=== PATIENT | female | born 1955 | race Caucasian/White ===

== ENCOUNTER 2022-01-02 12:01 | Emergency (ER) | payer OTHER ==
[~2022-01-02] VITALS: Ht 147.3 cm; Wt 57.6 kg
[2022-01-02 12:05] VITALS: BP_SYST 143
--- NOTE | 2022-01-02 12:05 | NUR ---
Placed in room 2 . Placed on school lunch monitor, blood pressure machine and pulse oximeter. To gown for exam. Side rails up. Report given to ARTURO TAN.
--- NOTE | 2022-01-02 12:15 | NUR ---
Pt arrives from home brought in by self. Pt c/o left side mouth pain. Pt states PS 8.5 of 10. slight swelling of left jaw line. recent procedure: Pt states Dental care of implant procedure occurred on 12/21 with golfball size swelling. PMH Bi-Polar, HTN, Gerd , hernia
--- NOTE | 2022-01-02 12:22 | NUR ---
ER at bedside examining patient.
[2022-01-02] MEDS ORDERED: LIDOCAINE/EPI 2% 1:100000 20 ML VIAL INJ ONE (13:00)
[2022-01-02] MEDS ORDERED: BUPIVACAINE /PF 0.25% 30 ML VIAL INJ ONE (13:00)
--- NOTE | 2022-01-02 13:16 | NUR ---
Patient transported to radiology via , accompanied by tech.
[2022-01-02] MEDS ORDERED: HYDR-3921 PO (14:13)
[2022-01-02 15:01] VITALS: BP_SYST 134
--- NOTE | 2022-01-02 15:05 | NUR ---
Patient given written and verbal discharge instructions and verbalizes understanding. ER MD discussed with patient the results and treatment provided. Patient in stable condition. ID arm band removed. Opportunity for questions provided and answered. Medication side effect fact sheet provided.
== END 2022-01-02 14:55 | disposition home or self-care (01) ==
LOC: SED 12:01
DX: K08.89 Other specified disorders of teeth and supporting structures (principal)
CPT/HCPCS: 64400; 70486; 76376; 99284; J3490

== ENCOUNTER 2022-03-07 11:50 | Emergency (ER) | payer OTHER ==
[~2022-03-07] VITALS: Ht 147.3 cm; Wt 54.9 kg
[~2022-03-07 11:50] MED LIST: HYDR-3921 PO
--- NOTE | 2022-03-07 11:50 | NUR ---
Pt brought by self, A&Ox4, pt presents to ER with L lower toothache/ tongue pain for the last couple days, afebrile, skin pink and warm, cap refill <3.
[2022-03-07 11:55] VITALS: BP_SYST 136
--- NOTE | 2022-03-07 14:10 | NUR ---
Dr Gauthier evaluating patient in the triage room
[2022-03-07] MEDS ORDERED: AZIT500T3 PO (14:16)
[2022-03-07] MEDS ORDERED: HYDR-3917 PO (14:16)
--- NOTE | 2022-03-07 14:54 | NUR ---
Patient given written and verbal discharge instructions and verbalizes understanding. ER MD discussed with patient the results and treatment provided. Patient in stable condition. ID arm band removed. Rx of ZITHROMAX, NORCO given. Patient educated on pain management and to follow up with PMD. Pain Scale 0/10. Opportunity for questions provided and answered. Medication side effect fact sheet provided.
== END 2022-03-07 14:54 | disposition home or self-care (01) ==
LOC: SED 11:50
DX: K05.10 Chronic gingivitis, plaque induced (principal); K08.89 Other specified disorders of teeth and supporting structures; Z88.0 Allergy status to penicillin; Z88.6 Allergy status to analgesic agent; Z79.899 Other long term (current) drug therapy
CPT/HCPCS: 99283

== ENCOUNTER 2022-06-01 11:12 | Emergency (ER) | payer OTHER ==
[~2022-06-01] VITALS: Ht 147.3 cm; Wt 56.2 kg
[~2022-06-01 11:12] MED LIST changes: +AZIT500T3 PO; +HYDR-3917 PO
[2022-06-01 11:20] VITALS: BP_SYST 152
--- NOTE | 2022-06-01 12:14 | NUR ---
Patient to ER bed H1 to gown for evaluation. Side rails up. Report given to ARTURO SZYMANSKI.
[2022-06-01] MEDS ORDERED: HYDR-3917 PO (12:15)
[2022-06-01] MEDS ORDERED: IBUP-1969 PO (12:15)
--- NOTE | 2022-06-01 12:16 | NUR ---
PATIENT CAME IN C/O LOW BACK PAIN, INJURY. PATIENT COMPLAINS OF CHRONIC LOWER BACK AND NECK PAIN, IN BETWEEN PAIN MANAGEMENT APPOINTMENTS. PT WOULD LIKE PAIN MEDICINE. HAS HX OF HYSTERECTOMY, HERNIA REPAIR, BLADDER PROLAPSE REPAIR, CHRONIC NECK AND BACK PAIN, BIPOLAR DISORDER. CARE TO BE PROVIDED ORDERED.
--- NOTE | 2022-06-01 12:21 | NUR ---
ER Dr. WRIGHT at bedside examining patient.
--- NOTE | 2022-06-01 14:10 | NUR ---
Patient given written and verbal discharge instructions and verbalizes understanding. ER DR. KYLE BARRIOS discussed with patient the results and treatment provided. Patient in stable condition. Rx of HYDROCODONE AND ACETAMINOPHEN given. Patient educated on pain management and to follow up with PMD. Pain Scale 2/10. Opportunity for questions provided and answered. Medication side effect fact sheet provided.
== END 2022-06-01 14:10 | disposition home or self-care (01) ==
LOC: SED 11:12
DX: M54.50 Low back pain, unspecified (principal); G89.29 Other chronic pain; Z88.1 Allergy status to other antibiotic agents; Z88.6 Allergy status to analgesic agent; Z79.899 Other long term (current) drug therapy
CPT/HCPCS: 99283

== ENCOUNTER 2022-06-23 16:44 | Emergency (ER) | payer OTHER ==
[~2022-06-23] VITALS: Ht 147.3 cm; Wt 56.2 kg
[~2022-06-23 16:44] MED LIST changes: +IBUP-1969 PO
[2022-06-23 17:20] VITALS: BP_SYST 146
--- NOTE | 2022-06-23 19:15 | NUR ---
MD WITH PT IN TRIAGE.
--- NOTE | 2022-06-23 20:00 | NUR ---
PT FROM HOME WITH LEFT SIDED MOUTH PAIN AFTER DENTAL PROCEDURE. PT RATES PAIN 10/10. A&O X3 AND AMBULATORY. MADE AWARE.
[2022-06-23] MEDS ORDERED: BENZ9GEL3 MM (21:11)
[2022-06-23] MEDS ORDERED: HYDR-3917 PO (21:12)
[2022-06-23] MEDS ORDERED: ACETAMINOPHEN 500 MG TABLET PO ONE (21:45)
--- NOTE | 2022-06-23 22:23 | NUR ---
CALLED PT TO MEDICATE. NO RESPONSE.
--- NOTE | 2022-06-23 22:30 | NUR ---
CALLED PT TO MEDICATE. NO RESPONSE.
--- NOTE | 2022-06-23 23:00 | NUR ---
PT LEFT WIHTOUT DISCHARGE INSTRUCTIONS.
== END 2022-06-23 23:00 | disposition home or self-care (01) ==
LOC: SED 16:44
DX: K12.0 Recurrent oral aphthae (principal); Z88.0 Allergy status to penicillin; Z88.6 Allergy status to analgesic agent; Z79.899 Other long term (current) drug therapy
CPT/HCPCS: 99282; 99283

== ENCOUNTER 2024-03-18 13:01 | Emergency (ER) | payer OTHER ==
[~2024-03-18] VITALS: Ht 152.4 cm; Wt 56.7 kg
[~2024-03-18 13:01] MED LIST changes: +AZIT500T PO; -AZIT500T3 PO; +BENZ9GEL3 MM
[2024-03-18 13:06] VITALS: BP_SYST 122; PULSE 94; RESP 18; TEMP 98.3; O2SAT 98
[2024-03-18] MEDS ORDERED: HYDROcodone/ACETAMIN 10-325 MG TAB PO ONE (14:00)
[2024-03-18 14:11] LABS: BASOPHILS % (AUTO) 0.7 % (0.0-2.0); EOSINOPHILS # (AUTO) 0.1 K/uL (0.0-0.4); EOSINOPHILS % (AUTO) 3.1 % (0.0-4.0); HEMATOCRIT 39.5 % (36-48); HEMOGLOBIN 13.2 g/dL (12.0-16.0); LYMPHOCYTES # (AUTO) 1.2 K/uL (1.0-5.5); LYMPHOCYTES % (AUTO) 25.9 % (20.5-51.5); MEAN CORPUSCULAR HEMOGLOBIN 30 pg (27-31); MEAN CORPUSCULAR HGB CONC 33 % (32-36); MEAN CORPUSCULAR VOLUME 88 fL (79.0-98.0); MONOCYTES # (AUTO) 0.5 K/uL (0.0-1.0); MONOCYTES % (AUTO) 10.3 % (1.7-9.3); NEUTROPHILS # (AUTO) 2.7 K/uL (1.8-7.7); PLATELET COUNT (AUTO) 318 K/uL (130-430); RED BLOOD CELL COUNT(AUTO) 4.47 MIL/uL (4.2-6.2); RED CELL DISTRIBUTION WIDTH 13.7 % (9.0-15.0); WHITE BLOOD COUNT (AUTO) 4.5 K/uL (4.8-10.8)
[2024-03-18] MEDS: KETOROLAC TROMETHAMINE 30 MG VIAL IM ONE (14:15)
[2024-03-18 14:22] LABS: SERUM HCG (QUALITATIVE) NEGATIVE (NEGATIVE)
[2024-03-18 14:23] LABS: ERYTHROCYTE SEDIMENTATION RATE < 1 MM/HR (0-20)
[2024-03-18 14:30] LABS: PROTHROMBIN TIME 10.2 SECS (9.5-12.5)
[2024-03-18 14:40] LABS: ALBUMIN 3.6 g/dL (3.4-4.8); BILIRUBIN,DIRECT 0.1 mg/dL (0.0-0.3); CALCIUM 8.7 mg/dL (8.4-11.0); CREATININE 0.69 mg/dL (0.55-1.30); POTASSIUM 3.7 mmol/L (3.5-5.1); TOTAL BILIRUBIN 0.4 mg/dL (0.0-1.0); TOTAL PROTEIN, SERUM 6.7 g/dL (6.4-8.3); URIC ACID 3.8 mg/dL (2.4-7.0)
[2024-03-18] MEDS ORDERED: HYDR-3927 PO (15:32)
[2024-03-18 16:00] VITALS: BP_SYST 105; PULSE 88; RESP 18; O2SAT 98
== END 2024-03-18 16:00 | disposition home or self-care (01) ==
LOC: SED 13:01
DX: M25.552 Pain in left hip (principal); G89.29 Other chronic pain; F31.9 Bipolar disorder, unspecified; Z88.0 Allergy status to penicillin; Z88.8 Allergy status to other drugs, medicaments and biological substances; Z79.899 Other long term (current) drug therapy; Z79.2 Long term (current) use of antibiotics
CPT/HCPCS: 99284; 80076; 80048; 84703; 84550; 85025; 85610; 85651; 85730; 36415; 73502; 96372; 82397; J1885